=== PATIENT | female | born 1950 | race Caucasian/White ===

== ENCOUNTER 2017-11-06 13:09 | Emergency (ER) | payer MEDICARE, OTHER ==
[2017-11-06] MEDS: ASPIRIN 325 MG TAB PO (14:17)
[2017-11-06] MEDS: ONDANSETRON 4 MG INJ IV (14:17)
[2017-11-06 14:23] LABS: ADD MAN DIFF? NO
[2017-11-06 14:25] LABS: WHITE BLOOD COUNT 10.9 10^3/ul (4.8-10.8)
[2017-11-06 14:25] LABS: BASOPHIL # 0.1 10^3/ul (0.0-0.1); BASOPHILS % 0.5 % (0.0-2.0); EOSINOPHILS # 0.1 10^3/ul (0.0-0.5); HEMATOCRIT 39.7 % (37.0-47.0); HEMOGLOBIN 13.4 g/dl (12.0-16.0); LYMPHOCYTES # 3.6 10^3/ul (0.8-2.9); LYMPHOCYTES % 33.4 % (15.0-51.0); MEAN CORPUSCULAR HEMOGLOBIN 30.9 pg (29.0-33.0); MEAN CORPUSCULAR HGB CONC 33.8 g/dl (32.0-37.0); MEAN CORPUSCULAR VOLUME 91.7 fl (82.0-101.0); MEAN PLATELET VOLUME 10.5 fl (7.4-10.4); MONOCYTE # 0.5 10^3/ul (0.3-0.9); MONOCYTES % 4.6 % (0.0-11.0); NEUTROPHIL # 6.5 10^3/ul (1.6-7.5); NEUTROPHILS % 60.1 % (39.0-77.0); PLATELET COUNT 196 10^3/UL (140-415); RED BLOOD COUNT 4.33 10^6/ul (4.20-5.40); RED CELL DISTRIBUTION WIDTH 13.7 % (11.5-14.5)
[2017-11-06] MEDS: morphine 4 MG/ML VIAL IV (14:29)
[2017-11-06 14:45] LABS: ANION GAP 14 (8-16); BLOOD UREA NITROGEN 5 mg/dl (7-20); CALCIUM 9.1 mg/dl (8.4-10.2); CARBON DIOXIDE 27 mmol/L (21-31); CHLORIDE 105 mmol/L (97-110); CREATININE 0.58 mg/dl (0.44-1.00); GLUCOSE 113 mg/dl (70-220); POTASSIUM 3.8 mmol/L (3.5-5.1); SODIUM 142 mmol/L (135-144)
[2017-11-06 14:57] LABS: B-TYPE NATRIURETIC PEPTIDE 568 PG/ML (0-125); TROPONIN-I < 0.012 ng/ml (0.00-0.12)
[2017-11-06] MEDS: ALBUTEROL 0.083% (NEB) 2.5 MG/3 ML AMP HHN ×2 (15:31→15:45)
[2017-11-06] MEDS: IPRATROPIUM (NEB) 0.5 MG/2.5 ML AMP HHN ×2 (15:31→15:45)
== END 2017-11-06 18:03 | disposition left against medical advice (07) ==
LOC: E/R 18:03
DX: J44.1 Chronic obstructive pulmonary disease with (acute) exacerbation (principal); J20.9 Acute bronchitis, unspecified; Z79.84 Long term (current) use of oral hypoglycemic drugs
CPT/HCPCS: 36415; 71045; 80048; 83880; 84484; 85025; 93005; 94644; 96374; 96375; 99285-25

== ENCOUNTER → 2017-11-07 | Outpatient (CLI) | payer MEDICARE, OTHER ==
[2017-11-07 10:09] LABS: AADO2 Arterial 20.4 mmHg (7.0-24.0); Allen Test ACCEPTAB; Arterial Base Excess 1.9 mmol/L (-3.0-3); Arterial Blood Gas Oxygen Sat 95.5 mmHG (95.0-98.0); Arterial COHb 2.5 % (0.0-3.0); Arterial HCO3 26.6 mmol/L (22.0-26.0); Arterial MetHb 0.1 % (0.0-1.5); Arterial Total Hemglobin 13.8 g/dl (12.0-18.0); MODE ROOM AIR; Site Right Radial
== END | disposition home or self-care (01) ==
LOC: PUL 09:37
DX: R09.02 Hypoxemia (principal)
CPT/HCPCS: 36600; 82803

== ENCOUNTER → 2018-01-02 | Outpatient (CLI) | payer MEDICARE, OTHER ==
[~2018-01-02] MED LIST: REGADENOSON 0.4 MG/5 ML SYG
[2018-01-02 11:26] LABS: ADD MAN DIFF? NO
[2018-01-02 11:30] LABS: BASOPHIL # 0.1 10^3/ul (0.0-0.1); BASOPHILS % 0.5 % (0.0-2.0); EOSINOPHILS # 0.2 10^3/ul (0.0-0.5); EOSINOPHILS % 1.6 % (0.0-7.0); HEMATOCRIT 40.6 % (37.0-47.0); HEMOGLOBIN 13.6 g/dl (12.0-16.0); LYMPHOCYTES # 3.6 10^3/ul (0.8-2.9); LYMPHOCYTES % 35.2 % (15.0-51.0); MEAN CORPUSCULAR HEMOGLOBIN 31.2 pg (29.0-33.0); MEAN CORPUSCULAR HGB CONC 33.5 g/dl (32.0-37.0); MEAN CORPUSCULAR VOLUME 93.1 fl (82.0-101.0); MEAN PLATELET VOLUME 9.9 fl (7.4-10.4); MONOCYTE # 0.5 10^3/ul (0.3-0.9); NEUTROPHIL # 5.8 10^3/ul (1.6-7.5); NEUTROPHILS % 57.3 % (39.0-77.0); PLATELET COUNT 199 10^3/UL (140-415); RED BLOOD COUNT 4.36 10^6/ul (4.20-5.40); RED CELL DISTRIBUTION WIDTH 13.8 % (11.5-14.5)
[2018-01-02 11:30] LABS: WHITE BLOOD COUNT 10.2 10^3/ul (4.8-10.8)
[2018-01-02 12:10] LABS: INR 0.96; PARTIAL THROMBOPLASTIN TIME 26.4 Sec (25.0-35.0); PROTIME 12.9 Sec (11.9-14.9)
== END | disposition home or self-care (01) ==
LOC: NUC 08:49
DX: R07.9 Chest pain, unspecified (principal)
CPT/HCPCS: 78451; 85025; 85610; 85730

== ENCOUNTER → 2018-01-18 | Outpatient (CLI) | payer MEDICARE, OTHER ==
[2018-01-18 11:44] LABS: ADD MAN DIFF? NO
[2018-01-18 11:57] LABS: WHITE BLOOD COUNT 10.2 10^3/ul (4.8-10.8)
[2018-01-18 11:57] LABS: BASOPHIL # 0.1 10^3/ul (0.0-0.1); BASOPHILS % 0.5 % (0.0-2.0); EOSINOPHILS # 0.1 10^3/ul (0.0-0.5); EOSINOPHILS % 0.8 % (0.0-7.0); HEMATOCRIT 39.7 % (37.0-47.0); HEMOGLOBIN 13.5 g/dl (12.0-16.0); LYMPHOCYTES % 29.6 % (15.0-51.0); MEAN CORPUSCULAR HEMOGLOBIN 31.3 pg (29.0-33.0); MEAN CORPUSCULAR VOLUME 92.1 fl (82.0-101.0); MEAN PLATELET VOLUME 9.9 fl (7.4-10.4); MONOCYTE # 0.5 10^3/ul (0.3-0.9); MONOCYTES % 4.4 % (0.0-11.0); NEUTROPHIL # 6.5 10^3/ul (1.6-7.5); NEUTROPHILS % 64.1 % (39.0-77.0); PLATELET COUNT 220 10^3/UL (140-415); RED BLOOD COUNT 4.31 10^6/ul (4.20-5.40); RED CELL DISTRIBUTION WIDTH 13.6 % (11.5-14.5)
== END | disposition home or self-care (01) ==
LOC: LAB 11:24
DX: N39.0 Urinary tract infection, site not specified (principal); D72.829 Elevated white blood cell count, unspecified
CPT/HCPCS: 85025

== ENCOUNTER 2018-01-30 14:08 | Emergency (ER) | payer MEDICARE, OTHER ==
[2018-01-30] MEDS: NITROGLYCERIN 2% 1 GM OINT PKT TD (14:45)
[2018-01-30] MEDS: ASPIRIN 325 MG TAB PO (14:45)
[2018-01-30 15:31] LABS: ADD MAN DIFF? NO
[2018-01-30 15:38] LABS: BASOPHILS % 0.3 % (0.0-2.0); EOSINOPHILS # 0.2 10^3/ul (0.0-0.5); EOSINOPHILS % 1.4 % (0.0-7.0); HEMATOCRIT 37.3 % (37.0-47.0); HEMOGLOBIN 12.8 g/dl (12.0-16.0); LYMPHOCYTES # 3.5 10^3/ul (0.8-2.9); MEAN CORPUSCULAR HEMOGLOBIN 31.4 pg (29.0-33.0); MEAN CORPUSCULAR HGB CONC 34.3 g/dl (32.0-37.0); MEAN CORPUSCULAR VOLUME 91.4 fl (82.0-101.0); MEAN PLATELET VOLUME 10.1 fl (7.4-10.4); MONOCYTE # 0.7 10^3/ul (0.3-0.9); MONOCYTES % 6.2 % (0.0-11.0); NEUTROPHIL # 6.3 10^3/ul (1.6-7.5); NEUTROPHILS % 58.7 % (39.0-77.0); PLATELET COUNT 201 10^3/UL (140-415); RED BLOOD COUNT 4.08 10^6/ul (4.20-5.40); RED CELL DISTRIBUTION WIDTH 13.4 % (11.5-14.5)
[2018-01-30 15:38] LABS: WHITE BLOOD COUNT 10.7 10^3/ul (4.8-10.8)
[2018-01-30 15:55] LABS: ALANINE AMINOTRANSFERASE 25 IU/L (13-69); ALBUMIN/GLOBULIN RATIO 1.33; ALKALINE PHOSPHATASE 108 IU/L (42-121); ANION GAP 16 (8-16); ASPARTATE AMINO TRANSFERASE 22 IU/L (15-46); BILIRUBIN,INDIRECT 0.2 mg/dl (0-1.1); BILIRUBIN,TOTAL 0.2 mg/dl (0.2-1.3); BLOOD UREA NITROGEN 11 mg/dl (7-20); CALCIUM 8.8 mg/dl (8.4-10.2); CARBON DIOXIDE 24 mmol/L (21-31); CHLORIDE 109 mmol/L (97-110); CREATININE 0.51 mg/dl (0.44-1.00); GLUCOSE 94 mg/dl (70-220); SODIUM 145 mmol/L (135-144)
[2018-01-30 16:06] LABS: TROPONIN-I < 0.012 ng/ml (0.00-0.12)
[2018-01-30] MEDS ORDERED: ONDANSETRON 4 MG INJ IV (18:00)
[2018-01-30] MEDS ORDERED: ACETAMINOPHEN 325 MG TAB PO (18:00)
== END 2018-01-30 18:58 | disposition left against medical advice (07) ==
LOC: E/R 14:08
DX: R07.9 Chest pain, unspecified (principal); I10 Essential (primary) hypertension; E11.9 Type 2 diabetes mellitus without complications; J44.9 Chronic obstructive pulmonary disease, unspecified; F17.210 Nicotine dependence, cigarettes, uncomplicated; Z79.84 Long term (current) use of oral hypoglycemic drugs
CPT/HCPCS: 36415; 71045; 80053; 84484; 85025; 93005; 99285-25

== ENCOUNTER → 2018-04-12 | Outpatient (CLI) | payer MEDICARE, OTHER ==
[2018-04-12] MEDS: REGADENOSON 0.4 MG/5 ML SYG (11:40)
== END | disposition home or self-care (01) ==
LOC: NUC 09:15
DX: I10 Essential (primary) hypertension (principal); I48.91 Unspecified atrial fibrillation; R07.9 Chest pain, unspecified
CPT/HCPCS: 78452; 93017

== ENCOUNTER 2018-10-02 16:29 | Emergency (ER) | payer SELFPAY, OTHER, MEDICARE | END 2018-10-02 17:20 | disposition left against medical advice (07) | LOC: E/R 17:20 | DX: Z53.21 Procedure and treatment not carried out due to patient leaving prior to being seen by health care provider (principal) | CPT/HCPCS: 93005 ==

== ENCOUNTER 2018-12-19 18:42 | Emergency (ER) | payer SELFPAY | END 2018-12-19 20:26 | disposition left against medical advice (07) | LOC: E/R 18:42 | DX: Z53.21 Procedure and treatment not carried out due to patient leaving prior to being seen by health care provider (principal) ==

== ENCOUNTER 2018-12-28 14:11 | Emergency (ER) | payer MEDICARE, OTHER ==
[2018-12-28] MEDS: ACETAMINOPHEN 325 MG TAB PO (17:05)
[2018-12-28] MEDS: ALBUTEROL 0.5% (NEB) 2.5 MG/0.5 ML AMP INH (17:09)
[2018-12-28] MEDS: IPRATROPIUM (NEB) 0.5 MG/2.5 ML AMP INH (17:09)
[2018-12-28] MEDS: predniSONE 20 MG TAB PO (17:31)
== END 2018-12-28 18:02 | disposition home or self-care (01) ==
LOC: E/R 14:11
DX: J44.1 Chronic obstructive pulmonary disease with (acute) exacerbation (principal); S80.212A Abrasion, left knee, initial encounter; E11.9 Type 2 diabetes mellitus without complications; I11.0 Hypertensive heart disease with heart failure; I50.9 Heart failure, unspecified; W18.39XA Other fall on same level, initial encounter; Y92.9 Unspecified place or not applicable
CPT/HCPCS: 71045; 73562; 94644; 99284-25

== ENCOUNTER 2019-02-12 09:03 | Day surgery (SDC) | payer MEDICARE, OTHER ==
[2019-02-12 10:04] LABS: ADD MAN DIFF? NO
[2019-02-12 10:06] LABS: WHITE BLOOD COUNT 10.6 10^3/ul (4.8-10.8)
[2019-02-12 10:06] LABS: BASOPHILS % 0.4 % (0.0-2.0); EOSINOPHILS # 0.1 10^3/ul (0.0-0.5); EOSINOPHILS % 1.1 % (0.0-7.0); HEMATOCRIT 37.4 % (37.0-47.0); HEMOGLOBIN 12.5 g/dl (12.0-16.0); LYMPHOCYTES # 2.3 10^3/ul (0.8-2.9); LYMPHOCYTES % 21.9 % (15.0-51.0); MEAN CORPUSCULAR HEMOGLOBIN 30.9 pg (29.0-33.0); MEAN CORPUSCULAR HGB CONC 33.4 g/dl (32.0-37.0); MEAN CORPUSCULAR VOLUME 92.6 fl (82.0-101.0); MEAN PLATELET VOLUME 10.3 fl (7.4-10.4); MONOCYTE # 0.5 10^3/ul (0.3-0.9); MONOCYTES % 5.1 % (0.0-11.0); NEUTROPHIL # 7.6 10^3/ul (1.6-7.5); PLATELET COUNT 188 10^3/UL (140-415); RED BLOOD COUNT 4.04 10^6/ul (4.20-5.40); RED CELL DISTRIBUTION WIDTH 13.4 % (11.5-14.5)
[2019-02-12] MEDS: DIPHENHYDRAMINE 50 MG CAP PO (10:12)
[2019-02-12] MEDS: FAMOTIDINE 20 MG TAB PO (10:12)
[2019-02-12] MEDS: DIAZEPAM 5 MG TAB PO (10:12)
[2019-02-12 10:24] LABS: INR 1.01; PARTIAL THROMBOPLASTIN TIME 31.5 Sec (23.0-35.0); PROTIME 13.4 Sec (11.9-14.9)
[2019-02-12 10:43] LABS: ALANINE AMINOTRANSFERASE 13 IU/L (13-69); ALBUMIN 4.1 g/dl (3.3-4.9); ALBUMIN/GLOBULIN RATIO 1.24; ALKALINE PHOSPHATASE 119 IU/L (42-121); ANION GAP 9 (5-13); ASPARTATE AMINO TRANSFERASE 19 IU/L (15-46); BILIRUBIN,INDIRECT 0.4 mg/dl (0-1.1); BILIRUBIN,TOTAL 0.4 mg/dl (0.2-1.3); BLOOD UREA NITROGEN 9 mg/dl (7-20); CALCIUM 9.3 mg/dl (8.4-10.2); CARBON DIOXIDE 28 mmol/L (21-31); CHLORIDE 105 mmol/L (97-110); CREATININE 0.51 mg/dl (0.44-1.00); Estimated GFR > 60 mL/min (>60); GLUCOSE 98 mg/dl (70-220); POTASSIUM 4.1 mmol/L (3.5-5.1); SODIUM 142 mmol/L (135-144); TOTAL PROTEIN 7.4 g/dl (6.1-8.1)
[2019-02-12] MEDS ORDERED: IODIXANOL LOCM 100 ML BTL (10:57)
[2019-02-12] MEDS ORDERED: MIDAZOLAM 1 MG/ML 2 ML INJ (10:57)
[2019-02-12] MEDS ORDERED: LIDOCAINE 1% (MDV) 20 ML INJ (10:57)
[2019-02-12] MEDS ORDERED: FENTAnyl 50 MCG/ML VIAL (10:57)
[2019-02-12] MEDS ORDERED: morphine 2 MG INJ IV (12:30)
[2019-02-12] MEDS ORDERED: ACETAMINOPHEN 325 MG TAB PO (12:30)
[2019-02-12] MEDS ORDERED: ONDANSETRON 4 MG INJ IV (12:30)
[2019-02-12] MEDS ORDERED: AL HYDROX/MG HYDROX/SIMETH 30 ML CUP PO (12:30)
[2019-02-12] MEDS: SOD CHLORIDE 0.9% 1,000 ML IV (12:46)
== END 2019-02-12 16:45 | disposition home or self-care (01) ==
LOC: SDS 09:03
DX: R07.9 Chest pain, unspecified (principal); I25.10 Atherosclerotic heart disease of native coronary artery without angina pectoris; R06.02 Shortness of breath; E11.9 Type 2 diabetes mellitus without complications; I10 Essential (primary) hypertension
CPT/HCPCS: 80053; 82962; 85025; 85610; 85730; 93005; 93458